=== PATIENT | male | born 1955 | race Native Hawaiian/Other Pacific Islander ===

== ENCOUNTER 2018-04-25 08:53 | Outpatient (CLI) | payer OTHER | END 2018-04-25 08:54 | disposition home or self-care (01) | LOC: C.LAB 08:53 | DX: E11.9 Type 2 diabetes mellitus without complications (principal); I10 Essential (primary) hypertension; J02.9 Acute pharyngitis, unspecified; R09.3 Abnormal sputum; Z68.22 Body mass index [BMI] 22.0-22.9, adult ==